=== PATIENT | male | born 1955 | race Caucasian/White ===

== ENCOUNTER 2017-06-23 03:47 | Emergency (ER) | payer MEDICARE, SELFPAY ==
[2017-06-23] MEDS ORDERED: Sodium Chloride 0.9% 10 ML Syringe FLUSH PRN ×3 (04:19→08:48)
--- NOTE | 2017-06-23 04:23 | EDM.PDOC ---
<Aniyah Moreno - Last Filed: 06/23/17 07:00> ED HPI GENERAL MEDICAL PROBLEM - General Chief Complaint: Respiratory Problem Stated Complaint: SOB Time Seen by Provider: 06/23/17 04:17 Source of Information: Reports: Patient, Family History Limitations: Reports: No Limitations - History of Present Illness INITIAL COMMENTS - FREE TEXT/NARRATIVE: pt arrived with sob. He was hunting yestrday and did do a fair amount of walking. he runs high sugars. he has a history of neuropathy in his legs. He has had 2 MIs in the past and did not have chest pain with them. He had a hip replaced about 6 weeks ago at the [facility] in the [facility]. He was not on blood thiner at that time. Onset: Today, Other ( getting worse tonight. ) Duration: Hour(s):, Getting Worse Location: Reports: Chest, Other (pt is progrssively more sob. ) Quality: Reports: Other ( sob. ) Severity: Moderate Associated Symptoms: Reports: Shortness of Breath - Related Data Allergies Allergy/AdvReac Type Severity Reaction Status Date / Time lisinopril Allergy Cough Verified 06/23/17 04:04 Home Meds: Home Meds Aspirin 81 mg PO DAILY 06/23/17 [History] Aspirin 325 mg PO DAILY 06/23/17 [History] Carvedilol 12.5 mg PO BID 06/23/17 [History] Docusate Sodium/Sennosides [Senna Plus] 1 each PO BEDTIME PRN 06/23/17 [History] Gabapentin [Neurontin] 300 mg PO TID 06/23/17 [History] Insulin Glarg,Human.Rec.Analog [LantUS Solostar] 34 unit SUBCUT DAILY 06/23/17 [ History] Losartan [Cozaar] 25 mg PO DAILY 06/23/17 [History] Omeprazole 20 mg PO DAILY 06/23/17 [History] Ranitidine HCl 150 mg PO BID 06/23/17 [History] atorvaSTATin Calcium [Atorvastatin Calcium] 40 mg PO BEDTIME 06/23/17 [History] glipiZIDE [Glucotrol] 5 mg PO BID 06/23/17 [History] metFORMIN [Glucophage] 1,000 mg PO BIDMEALS 06/23/17 [History] oxyCODONE 1 - 2 tab PO Q6HR PRN 06/23/17 [History] Past Medical History HEENT History: Reports: Impaired Vision Cardiovascular History: Reports: [place], Stents Endocrine/Metabolic History: Reports: Diabetes, Type II Oncologic (Cancer) History: Reports: Non-Hodgkin's Lymphoma - Infectious Disease History Infectious Disease History: Reports: Chicken Pox, Measles, Mumps - Past Surgical History Musculoskeletal Surgical History: Reports: Hip Replacement Social & Family History - Tobacco Use Smoking Status *Q: Former Smoker Used Tobacco, but Quit: Yes Month Tobacco Last Used: many years ago - Caffeine Use Caffeine Use: Reports: Coffee, Soda - Recreational Drug Use Recreational Drug Use: No ED ROS GENERAL - Review of Systems Review Of Systems: See Below Constitutional: Reports: No Symptoms HEENT: Reports: No Symptoms Respiratory: Reports: Shortness of Breath, Other (pt feels like he can,t fill his lungs. ) Cardiovascular: Reports: Other (pt was sob when he walked today, He is now feling very sob. ) Endocrine: Reports: High Glucose, Other (pt states his bs is about 300. ) GI/Abdominal: Reports: Other (pt does feel belchy) : Reports: No Symptoms Musculoskeletal: Reports: No Symptoms Skin: Reports: No Symptoms Neurological: Reports: Headache, Other (pt has low grade headaCHES AT NITE. ) Psychiatric: Reports: Anxiety Hematologic/Lymphatic: Reports: No Symptoms ED EXAM, GENERAL - Physical Exam Exam: See Below Free Text/Narrative:: pT IS VERY SOB. hE DOES APPEAR TO BE HYPERVENTILATING. hE WAS DEERHUNTING TODAY. hE DID WALK ALOT MORE THAN HE USUALLY DOES. hE HAS NO CHEST PAIN. hE DID HAVE HS RT HIP REPLACED IN . hE WAS NOT ON BLOOD THINNERS AFTER THAT. Exam Limited By: No Limitations General Appearance: Alert, Moderate Distress, Other ( PUPILS EQUAL REACTIVE .) Ears: Normal TMs Nose: Normal Inspection Throat/Mouth: Normal Inspection Head: Atraumatic Neck: Normal Inspection Respiratory/Chest: Decreased Breath Sounds, Other (PT IS BREATHING RAPID -- HYPERVENTILATING. ) Cardiovascular: Regular Rate, Rhythm GI/Abdominal: Soft, Non-Tender (Male) Exam: Deferred Rectal (Males) Exam: Deferred Back Exam: Normal Inspection Extremities: Other (PT HAS NO TENDERNESS AND NO SIG EDEMA. ) Neurological: Alert, Oriented, Normal Cognition Psychiatric: Anxious, Other (PT IS BREATHING RAPIDLY WITH GOOD O2 SATS. ) Course - Vital Signs Last Recorded V/S: Last Vital Signs Temp 36.7 C 06/23/17 07:32 Pulse 93 06/23/17 07:32 Resp 15 06/23/17 07:32 BP 134/81 06/23/17 07:32 Pulse Ox 98 06/23/17 07:32 - Orders/Labs/Meds Orders: Active Orders 24 hr Category Date Time Status EKG Documentation Completion [RC] ASDIRECTED Care 06/23/17 04:14 Active Ang Chest [CT] Stat Exams 06/23/17 08:53 Taken Chest 1V Frontal [CR] Stat Exams 06/23/17 04:30 Taken Sodium Chloride 0.9% [Normal Saline] 1,000 ml Med 06/23/17 05:30 Active IV ASDIRECTED Sodium Chloride 0.9% [Saline Flush] Med 06/23/17 04:19 Active 10 ml FLUSH ASDIRECTED PRN Saline Lock Insert [OM.PC] Routine Oth 06/23/17 04:19 Ordered EKG 12 Lead [EK] Routine Ther 06/23/17 04:14 Ordered Medication Orders Sodium Chloride (Normal Saline) 1,000 mls @ 100 mls/hr IV ASDIRECTED RICKIE Last Admin: 06/23/17 05:39 Dose: 100 mls/hr Sodium Chloride (Saline Flush) 10 ml FLUSH ASDIRECTED PRN PRN Reason: Keep Vein Open Last Admin: 06/23/17 04:34 Dose: 10 ml Labs: Laboratory Tests 06/23/17 06/23/17 06/23/17 Range/Units 04:30 04:30 04:30 WBC 10.0 (4.5-11.0) K/uL RBC 4.32 (4.30-5.90) M/uL Hgb 13.1 (12.0-15.0) g/dL Hct 38.7 L (40.0-54.0) % MCV 90 (80-98) fL MCH 30 (27-31) pg MCHC 34 (32-36) % Plt Count 238 (150-400) K/uL Neut % (Auto) 68 H (36-66) % Lymph % (Auto) 22 L (24-44) % [place] % (Auto) 8 H (2-6) % Eos % (Auto) 2 (2-4) % Baso % (Auto) 1 (0-1) % D-Dimer, Quantitative (0.0-400.0) ng/mL Puncture Site ABG pH (7.350-7.450) ABG pCO2 (35.0-42.0) mmHg ABG pO2 (75.0-100.0) mmHg ABG HCO3 (22.0-26.0) mmol/L ABG Total CO2 (23.0-27.0) mmol/L ABG O2 Saturation (95.0-98.0) % ABG O2 Content (15.0-23.0) %vol ABG Base Excess mm/L ABG Hemoglobin (13.5-18.0) g/dL ABG Oxyhemoglobin % ABG Carboxyhemoglobin (0.0-1.6) % ABG Methemoglobin % Khris Test O2 Delivery Device Sodium 138 L (140-148) mmol/L Potassium 3.8 (3.6-5.2) mmol/L Chloride 102 (100-108) mmol/L Carbon Dioxide 23 (21-32) mmol/L Anion Gap 16.8 H (5.0-14.0) mmol/L BUN 13 (7-18) mg/dL Creatinine 0.9 (0.8-1.3) mg/dL Est Cr Clr Drug Dosing 84.01 mL/min Estimated GFR (MDRD) > 60 (>60) Glucose 159 H (74-106) mg/dL Calcium 9.7 (8.5-10.1) mg/dL Total Bilirubin 0.6 (0.2-1.0) mg/dL AST 20 (15-37) U/L ALT 21 (12-78) U/L Alkaline Phosphatase 79 (46-116) U/L Creatine Kinase 82 (39-308) U/L Troponin I 0.025 (0.000-0.056) ng/mL NT-Pro-B Natriuret Pep (5-125) pg/mL Total Protein 7.8 (6.4-8.2) g/dL Albumin 3.8 (3.4-5.0) g/dL Globulin 4.0 H (2.3-3.5) g/dL Albumin/Globulin Ratio 1.0 L (1.2-2.2) Urine Color Urine Appearance Urine pH (4.5-8.0) Ur Specific [place] (1.008-1.030) Urine Protein (NEGATIVE) mg/dL Urine Glucose (UA) (NEGATIVE) mg/dL Urine Ketones (NEGATIVE) mg/dL Urine Occult Blood (NEGATIVE) Urine Nitrite (NEGAITVE) Urine Bilirubin (NEGATIVE) Urine Urobilinogen (NORMAL) mg/dL Ur Leukocyte Esterase (NEGATIVE) Urine RBC (0-5) Urine WBC (0-5) Ur Epithelial Cells Amorphous Sediment Urine Bacteria Urine Mucus 06/23/17 06/23/17 06/23/17 Range/Units 04:30 04:30 04:30 WBC (4.5-11.0) K/uL RBC (4.30-5.90) M/uL Hgb (12.0-15.0) g/dL Hct (40.0-54.0) % MCV (80-98) fL MCH (27-31) pg MCHC (32-36) % Plt Count (150-400) K/uL Neut % (Auto) (36-66) % Lymph % (Auto) (24-44) % [place] % (Auto) (2-6) % Eos % (Auto) (2-4) % Baso % (Auto) (0-1) % D-Dimer, Quantitative 1140 H (0.0-400.0) ng/mL Puncture Site L radial ABG pH 7.417 (7.350-7.450) ABG pCO2 38.3 (35.0-42.0) mmHg ABG pO2 62.9 L (75.0-100.0) mmHg ABG HCO3 24.2 (22.0-26.0) mmol/L ABG Total CO2 21.7 L (23.0-27.0) mmol/L ABG O2 Saturation 92.3 L (95.0-98.0) % ABG O2 Content 15.9 (15.0-23.0) %vol ABG Base Excess 0.4 mm/L ABG Hemoglobin 12.5 L (13.5-18.0) g/dL ABG Oxyhemoglobin 90.5 % ABG Carboxyhemoglobin 1.1 (0.0-1.6) % ABG Methemoglobin 0.8 % Khris Test Ok O2 Delivery Device Room air Sodium (140-148) mmol/L Potassium (3.6-5.2) mmol/L Chloride (100-108) mmol/L Carbon Dioxide (21-32) mmol/L Anion Gap (5.0-14.0) mmol/L BUN (7-18) mg/dL Creatinine (0.8-1.3) mg/dL Est Cr Clr Drug Dosing mL/min Estimated GFR (MDRD) (>60) Glucose (74-106) mg/dL Calcium (8.5-10.1) mg/dL Total Bilirubin (0.2-1.0) mg/dL AST (15-37) U/L ALT (12-78) U/L Alkaline Phosphatase (46-116) U/L Creatine Kinase (39-308) U/L Troponin I (0.000-0.056) ng/mL NT-Pro-B Natriuret Pep 475 H (5-125) pg/mL Total Protein (6.4-8.2) g/dL Albumin (3.4-5.0) g/dL Globulin (2.3-3.5) g/dL Albumin/Globulin Ratio (1.2-2.2) Urine Color Urine Appearance Urine pH (4.5-8.0) Ur Specific [place] (1.008-1.030) Urine Protein (NEGATIVE) mg/dL Urine Glucose (UA) (NEGATIVE) mg/dL Urine Ketones (NEGATIVE) mg/dL Urine Occult Blood (NEGATIVE) Urine Nitrite (NEGAITVE) Urine Bilirubin (NEGATIVE) Urine Urobilinogen (NORMAL) mg/dL Ur Leukocyte Esterase (NEGATIVE) Urine RBC (0-5) Urine WBC (0-5) Ur Epithelial Cells Amorphous Sediment Urine Bacteria Urine Mucus 06/23/17 06/23/17 Range/Units 04:45 07:00 WBC (4.5-11.0) K/uL RBC (4.30-5.90) M/uL Hgb (12.0-15.0) g/dL Hct (40.0-54.0) % MCV (80-98) fL MCH (27-31) pg MCHC (32-36) % Plt Count (150-400) K/uL Neut % (Auto) (36-66) % Lymph % (Auto) (24-44) % [place] % (Auto) (2-6) % Eos % (Auto) (2-4) % Baso % (Auto) (0-1) % D-Dimer, Quantitative (0.0-400.0) ng/mL Puncture Site ABG pH (7.350-7.450) ABG pCO2 (35.0-42.0) mmHg ABG pO2 (75.0-100.0) mmHg ABG HCO3 (22.0-26.0) mmol/L ABG Total CO2 (23.0-27.0) mmol/L ABG O2 Saturation (95.0-98.0) % ABG O2 Content (15.0-23.0) %vol ABG Base Excess mm/L ABG Hemoglobin (13.5-18.0) g/dL ABG Oxyhemoglobin % ABG Carboxyhemoglobin (0.0-1.6) % ABG Methemoglobin % Khris Test O2 Delivery Device Sodium (140-148) mmol/L Potassium (3.6-5.2) mmol/L Chloride (100-108) mmol/L Carbon Dioxide (21-32) mmol/L Anion Gap (5.0-14.0) mmol/L BUN (7-18) mg/dL Creatinine (0.8-1.3) mg/dL Est Cr Clr Drug Dosing mL/min Estimated GFR (MDRD) (>60) Glucose (74-106) mg/dL Calcium (8.5-10.1) mg/dL Total Bilirubin (0.2-1.0) mg/dL AST (15-37) U/L ALT (12-78) U/L Alkaline Phosphatase (46-116) U/L Creatine Kinase (39-308) U/L Troponin I 0.020 (0.000-0.056) ng/mL NT-Pro-B Natriuret Pep (5-125) pg/mL Total Protein (6.4-8.2) g/dL Albumin (3.4-5.0) g/dL Globulin (2.3-3.5) g/dL Albumin/Globulin Ratio (1.2-2.2) Urine Color Yellow Urine Appearance Clear Urine pH 7.0 (4.5-8.0) Ur Specific [place] 1.010 (1.008-1.030) Urine Protein Negative (NEGATIVE) mg/dL Urine Glucose (UA) Normal (NEGATIVE) mg/dL Urine Ketones Negative (NEGATIVE) mg/dL Urine Occult Blood Negative (NEGATIVE) Urine Nitrite Negative (NEGAITVE) Urine Bilirubin Negative (NEGATIVE) Urine Urobilinogen Normal (NORMAL) mg/dL Ur Leukocyte Esterase Negative (NEGATIVE) Urine RBC 0-5 (0-5) Urine WBC 0-5 (0-5) Ur Epithelial Cells Few Amorphous Sediment Not seen Urine Bacteria Few Urine Mucus Not seen Meds: Medications Generic Name Dose Route Start Last Admin Trade Name Reid PRN Reason Stop Dose Admin Sodium Chloride 1,000 mls @ 100 mls/hr 06/23/17 05:30 06/23/17 05:39 Normal Saline IV 100 mls/hr ASDIRECTED RICKIE Administration Sodium Chloride 10 ml 06/23/17 04:19 06/23/17 04:34 Saline Flush FLUSH 10 ml ASDIRECTED PRN Administration Keep Vein Open Discontinued Medications Generic Name Dose Route Start Last Admin Trade Name Reid PRN Reason Stop Dose Admin Furosemide 20 mg 06/23/17 05:04 06/23/17 05:11 Lasix IVPUSH 06/23/17 05:05 20 mg ONETIME ONE Administration Sodium Chloride 100 mls @ 3.5 mls/sec 06/23/17 06:00 Normal Saline IV ASDIRECTED RICKIE Sodium Chloride 100 mls @ 3.5 mls/sec 06/23/17 09:00 06/23/17 09:28 Normal Saline IV 06/23/17 09:30 4 mls/sec ASDIRECTED RICKIE Administration Iopamidol 100 ml 06/23/17 06:00 Isovue-370 (76%) IV . DIRECTED RICKIE Iopamidol 100 ml 06/23/17 09:00 06/23/17 09:28 Isovue-370 (76%) IV 06/23/17 09:30 100 ml . DIRECTED RICKIE Administration Lorazepam 0.5 mg 06/23/17 06:25 Ativan IVPUSH 06/23/17 06:26 ONETIME ONE Lorazepam 1 mg 06/23/17 07:43 06/23/17 07:49 Ativan PO 06/23/17 07:44 1 mg ONETIME ONE Administration Midazolam HCl 3 mg 06/23/17 08:25 Versed 1 Mg/Ml IVPUSH 06/23/17 08:26 ONETIME ONE Sodium Chloride 10 ml 06/23/17 05:58 Saline Flush FLUSH ONETIME PRN per radiology protocol Sodium Chloride 10 ml 06/23/17 08:48 06/23/17 09:28 Saline Flush FLUSH 06/23/17 09:30 10 ml ONETIME PRN Administration per radiology protocol - Re-Assessments/Exams Free Text/Narrative Re-Assessment/Exam: 06/23/17 06:34 Pt had an elevated Ddimer at 1100. Because he had the hip surgery in Apr and the elvated Ddimer a angio of the chest was ordered but the pt refused because he can,t be in the cat scanner. He was offered ativan but refused that. Will get a secod trop at 7 am. 06/23/17 07:01 pt is considering the cat scn if he is sedated to the point that he can.t remember what happened. Departure - Departure Disposition: Home, Self-Care 01 Clinical Impression: HAQ (dyspnea on exertion) - Discharge Information Referrals: PCP,None [Primary Care Provider] - Forms: ED Department Discharge - My Orders Last 24 Hours: My Active Orders 06/23/17 08:53 Ang Chest [CT] Stat - Assessment/Plan Last 24 Hours: My Active Orders 06/23/17 08:53 Ang Chest [CT] Stat <Darren Grijalva G - Last Filed: 06/23/17 09:58> Course - Vital Signs Text/Narrative:: Initially declined CTA of chest due to severe claustrophobia. Agreed to have test if sedated. Gave Versed 3 mg IV after Ativan 1 mg po and he did well. - Radiology Interpretation Free Text/Narrative:: CTA of chest-No PE CT Results Date: 06/23/17 Departure - Departure Time of Disposition: 10:30 Condition: Good
[2017-06-23] MEDS ORDERED: Furosemide 20 MG/2 ML VIAL IVPUSH ONE (05:04)
[2017-06-23] MEDS ORDERED: Sodium Chloride 0.9% 1,000 ML IV SCH (05:30)
[2017-06-23] MEDS ORDERED: Sodium Chloride 0.9% 100 ML IV SCH ×2 (06:00→09:00)
[2017-06-23] MEDS ORDERED: Iopamidol 755 Mg/ML 100 ML Bottle IV SCH ×2 (06:00→09:00)
[2017-06-23] MEDS ORDERED: LORazepam 2 MG/ML MDV IVPUSH ONE (06:25)
[2017-06-23] MEDS ORDERED: LORazepam 1 MG Tab PO ONE (07:43)
[2017-06-23] MEDS ORDERED: Midazolam 1 MG/ML 2 ML SDV IVPUSH ONE (08:25)
--- NOTE | 2017-06-24 08:21 | CR ---
Chest 1V Frontal INDICATION: sob FINDINGS: Mild elevation right hemidiaphragm with blunting of the right costophrenic angle secondary to extrapleural fat and postoperative change as seen on most recent CT. Heart size accentuated by por table AP technique. Chest otherwise negative.
== END 2017-06-23 10:53 | disposition home or self-care (01) ==
LOC: JP.ED 03:47
DX: R06.00 Dyspnea, unspecified (principal); E11.9 Type 2 diabetes mellitus without complications; Z87.891 Personal history of nicotine dependence; Z79.4 Long term (current) use of insulin; Z79.899 Other long term (current) drug therapy; Z79.82 Long term (current) use of aspirin; Z88.8 Allergy status to other drugs, medicaments and biological substances
CPT/HCPCS: 36600; 71010; 71275; 80053; 81001; 82550; 82803; 83880; 84484; 85025; 85379; 93005; 93010; 96361; 96374; 96375; 99284; 99285; A9270; J1940; J2250; J7030; J7040; J7050; Q9967